=== PATIENT | male | born 1960 | race Two or more races ===

== ENCOUNTER 2024-02-29 11:16 | Emergency (ER) | payer OTHER ==
[~2024-02-29] VITALS: Ht 165.1 cm; Wt 93.0 kg
[~2024-02-29 11:16] MED LIST: CEFADROXIL500 MG PO; KETO10TA2 PO; LEVSIN/SL0.125 MG SL; TAMS0.4C PO
[2024-02-29] MEDS ORDERED: KETOROLAC TROMETHAMINE 10 MG TABLET PO PRN (15:00)
[2024-02-29] MEDS ORDERED: KETOROLAC TROMETHAMINE 10 MG TABLET PO ONE (15:14)
== END 2024-02-29 17:27 | disposition home or self-care (01) ==
LOC: ER 11:18
DX: M77.8 Other enthesopathies, not elsewhere classified (principal)

== ENCOUNTER 2024-11-15 12:37 | Emergency (ER) | payer OTHER ==
[~2024-11-15] VITALS: Ht 167.6 cm; Wt 91.2 kg
[2024-11-15] MEDS ORDERED: 0.9 % SODIUM CHLORIDE 1,000 ML IV STA (13:51)
[2024-11-15] MEDS ORDERED: DEXAMETHASONE SODIUM PHOSPHATE 4 MG/ML VIAL IV ONE (14:00)
[2024-11-15] MEDS ORDERED: ORPHENADRINE CITRATE 30 MG/ML AMPUL IV ONE (14:00)
[2024-11-15] MEDS ORDERED: ORPHENADRINE CITRATE 30 MG/ML AMPUL ONE (16:01)
[2024-11-15] MEDS ORDERED: DEXAMETHASONE SODIUM PHOSPHATE 4 MG/ML VIAL ONE (16:01)
[2024-11-15 16:25] LABS: BASO % 0.4 % (0.1-1.2); EOS # 0.24 (0.04-0.54); EOS % 1.8 % (0.7-7.0); LYMPH # 2.43 (1.18-3.74); LYMPH % 18.3 % (19.3-53.1); MEAN PLATELET VOLUME 9.40 fl (9.4-12.4); MONO # 1.01 (0.24-0.82); MONO % 7.6 % (4.7-12.5); NEUT # 9.44 (1.56-6.13); NEUT % 71.1 % (34.0-71.1); RED CELL DISTRIBUTION WIDTH 12.7 % (11.6-14.4)
[2024-11-15 16:43] LABS: INR 0.98
[2024-11-15 16:47] LABS: BUN CREA RATIO 16.0 (7.0-25.0); CREATININE SERUM 1.16 mg/dL (0.70-1.30); GFR 62.99; GLUCOSE FASTING 105.0 mg/dL (65-100); OSMOLALITY SERUM 285.0 MOSM/KG (275-295)
[2024-11-15 18:55] LABS: URINE APPEARANCE Clear; URINE BILIRRUBIN Negative (NEGATIVE); URINE BLOOD Trace; URINE COLOR Yellow; URINE GLUCOSE Negative (NEGATIVE); URINE KETONE Negative (NEGATIVE); URINE LEUKOCYTE Negative; URINE NITRATE Negative; URINE PROTEIN Negative (NEGATIVE); URINE UROBILINOGEN 0.2 E.U./dl
[2024-11-15 19:00] LABS: URINE EPITHELIAL CELLS 1.9 uL (0.0-38.8); URINE RBC 4.2 uL (0.0-20.8)
[2024-11-15 19:09] LABS: URINE BACTERIA 3.5 uL (0.0-1933); URINE CAST 0.14 uL (0.0-1.40); URINE WBC 1.3 uL (0.0-23.2)
[2024-11-15] MEDS ORDERED: KETO10TA2 PO (22:10)
[2024-11-15] MEDS ORDERED: PEPCID AC20 MG PO (22:10)
[2024-11-15] MEDS ORDERED: NORFLEX100MG PO (22:10)
== END 2024-11-16 00:21 | disposition home or self-care (01) ==
LOC: ER 12:37
PROVIDERS: General Practice
DX: S09.8XXA Other specified injuries of head, initial encounter (principal); T07.XXXA Unspecified multiple injuries, initial encounter; W10.8XXA Fall (on) (from) other stairs and steps, initial encounter; Y93.89 Activity, other specified; Y92.89 Other specified places as the place of occurrence of the external cause; Y99.8 Other external cause status
CPT/HCPCS: 36415; 70450; 71260; 72125; 73060; 73070; 74177; Q9965